=== PATIENT | male | born 1965 | race Caucasian/White ===

== ENCOUNTER 2024-01-27 08:23 | Emergency (ER) | payer SELFPAY ==
--- NOTE | ~2024-01-27 | XR_ITS ---
EXAMINATION: XR chest 1V portable DATE: 01/27/2024 08:43 INDICATION: Shortness of breath. Bilateral foot swelling. TECHNIQUE: frontal view of the chest was obtained. COMPARISON: None FINDINGS: The lungs are clear with no focal airspace opacities, pulmonary edema, pleural effusion or pneumothor ax. The cardiomediastinal silhouette is normal. At least mild thoracic spondylosis. IMPRESSION: 1. No acute cardiopulmonary disease. Reviewed, dictated and finalized at location A. [employer]
[2024-01-27 08:24] VITALS: BP 156/85; PULSE 84; RESP 16; TEMP 36.6; O2SAT 99
--- NOTE | 2024-01-27 08:31 | ECG_ITS ---
Test Date: 2024-01-27 08:47:36 Measurements Intervals [place] Rate: 79 P: 25 SD: 154 QRS: 27 QRSD: 93 T: 54 QT: 388 QTc: 445 Interpretive Statements SINUS RHYTHM WITH OCCASIONAL SUPRAVENTRICULAR PREMATURE COMPLEXES NONSPECIFIC ST & T-WAVE ABNORMALITY No previous ECG available for comparison Electronically Signed On 01-29-2024 11:57:50 [employer] by Scottie Bull M.D.
--- NOTE | 2024-01-27 08:34 | ED_ITS ---
HPI - Extremity Problem General Chief complaint: Extremity Problem,Nontraumatic Stated complaint: bilateral foot swelling Time Seen by Provider: 01/27/24 08:26 Source: patient Mode of arrival: ambulatory Limitations: no limitations History of Present Illness HPI Narrative: 58-year-old male, smoker with bilateral lower extremity lymphedema presents to the ED with -- bilateral feet swelling with pain and erythema for the past 1 week. No fever or chills. No injury to the lower extremity. No drainage from the lower extremities. MD Complaint: extremity pain and extremity swelling Onset (ago): day(s) ( Seven days) Pain Consistency: constant Location: left and right Quality: aching Radiation: none Relieving factors: nothing Exacerbating factors: nothing Associated symptoms: denies other symptoms Related Data Allergies Allergy/AdvReac Type Severity Reaction Status Date / Time No Known Allergies Allergy Verified 01/27/24 09:17 Review of Systems 2 Review of Systems: All systems reviewed & are unremarkable except as noted in HPI and below Constitutional: Constitutional: Reports as per HPI and Reports no additional constitutional complaints Eyes: Eyes: Reports as per HPI and Reports no additional eye complaints ENT: Reports system reviewed and no additional complaints, except as documented and Reports as per HPI Cardiovascular: Cardiovascular: Reports as per HPI and Reports no additional cardiovascular complaints Respiratory: Respiratory: Reports as per HPI and Reports no additional respiratory complaints Comments: history of snoring Gastrointestinal: Gastrointestinal: Reports as per HPI and Reports no additional gastrointestinal complaints Genitourinary: Genitourinary: Reports no additional male genitourinary complaints and Reports as per HPI Musculoskeletal: Musculoskeletal: Reports no additional musculoskeletal complaints and Reports as per HPI Integumentary/Breasts: Comments: bilateral leg swelling. Bilateral feet are erythematous/ swollen and tender Neurologic: Reports system reviewed and no additional complaints, except as documented and Reports as per HPI Psychiatric: Psychiatric: Reports no additional psychiatric complaints and Reports as per HPI Endocrine: Endocrine: Reports no additional endocrine complaints and Reports as per HPI Hematologic/Lymphatic: Hematologic/Lymphatic: Reports no additional hematologic/lymphatic complaints and Reports as per HPI Allergic/Immunologic: Allergic/Immunologic: Reports no additional allergic/immunologic complaints and Reports as per HPI PMFSH Past Medical History Medical History (Updated 01/27/24 @ 10:13 by Ted Gallego MD) Lymphedema Social History Social History (Updated 01/27/24 @ 08:36 by Ted Gallego MD) Social History: smoker Exam 2 Narrative: blood pressure stable. Afebrile. Oxygen saturation of 99% on room air. Const: General: healthy appearing and no acute distress Nutritional Appearance: well nourished Orientation/consciousness: patient oriented x3 Limitations: no limitations HENMT: Head: normal to inspection Ears: external ears normal F mick/Nose/Sinus: Normal external nose present Face and sinus: normal facial exam Mouth: Yes Normal oral and palatal mucosa present Throat: posterior oropharynx normal Eyes: Conjunctivae: conjunctivae normal Pupils: Equal, round and reactive pupils present EOM: EOMs intact bilaterally Direct Ophthalmoscopy: no photophobia Neck: Neck: normal visual inspection, no lymphadenopathy and no meningeal signs Chest: Chest palpation & inspection: normal inspection of the chest Resp: Effort & Inspection: normal respiratory effort Auscultation: d iminished lung sounds Cardio: Rate: regular rate Rhythm: regular rhythm GI: GI Palp: Yes Soft to palpation Auscultation: normal bowel sounds O ther: No tenderness/ rigidity / rebound. : General: Yes no CVA tenderness Back/Spine/Pelvis: Back: no CVA tenderness Skin: Other: Bilateral leg swelling bilateral feet are swollen/ erythematous and tender. Neuro: General: patient oriented x3, moves all extremities, no meningeal signs, no focal motor deficits and CN's II-XI intact bilaterally Cranial nerves: Yes Nystagmus not present Speech: normal speech Gait exam (Neuro): Normal gait present Extrem: General: normal to inspection and no clubbing, cyanosis or edema Psych: Mental Status: mental status grossly normal Affect: normal affect Course Course Emergency Course: Lymphedema-- the patient does not have any evidence of CHF, renal insufficiency. patient was noted to have a positive D-dimer. Unable to rule out leg DVT. Would start this patient on anticoagulation. The patient had an ABG of 742/36.5/80 on room air. The patient has any gradient of 24 and appears to be unlikely to have any significant pulmonary embolism. cellulitis both legs feet- Will start the patient on Augmentin in view of the bilateral pain/swelling/ erythema of both feet. The patient has a normal white cell count and a normal lactate Vital Signs Vital signs: Vital Signs Temperature 36.6 C 01/27/24 08:24 Pulse Rate 84 01/27/24 08:24 Respiratory Rate 16 01/27/24 08:24 Blood Pressure 156/85 H 01/27/24 08:24 Pulse Oximetry 99 01/27/24 08:24 Oxygen Delivery Room Air 01/27/24 08:24 Temperature 36.6 C 01/27/24 08:24 Pulse Rate 84 01/27/24 08:24 Respiratory Rate 16 01/27/24 08:24 Blood Pressure 156/85 H 01/27/24 08:24 Pulse Oximetry 99 01/27/24 08:24 Oxygen Delivery Room Air 01/27/24 08:24 MDM - Extremity (Nontraumatic) MDM Narrative Medical decision making narrative: lymphedema with positive D-dimer. Foot cellulitis Lab Data 01/27/24 08:59 01/27/24 08:58 Labs: Lab Results 01/27/24 01/27/24 Range/Units 08:58 08:59 WBC 9.2 (4.8-10.8) K/mm3 RBC 4.83 (4.70-6.10) M/mm3 Hgb 15.7 (14.0-18.0) g/dL Hct 44.4 (40.0-54.0) % MCV 91.9 (78.0-102.0) fL MCH 32.5 H (27.0-31.0) pg MCHC 35.4 (32-36) g/dL RDW 12.8 (11.6-14.4) % Plt Count 236 (150-420) K/mm3 MPV 9.4 (8.7-11.0) fl Immature Gran % (Auto) 0.4 H (0.0-0.0) % Neut % (Auto) 68.8 (50.0-70.0) % Lymph % (Auto) 20.1 (18.0-42.0) % [place] % (Auto) 8.1 (2.0-11.0) % Eos % (Auto) 2.2 (1.0-6.0) % Baso % (Auto) 0.4 (0.0-1.0) % Lymph # (Auto) 1.84 (1.10-4.50) K/mm3 [place] # (Auto) 0.74 (0.10-0.90) K/mm3 Eos # (Auto) 0.20 (0.02-0.50) K/mm3 Baso # (Auto) 0.04 (0.00-0.10) K/mm3 Abs Immat Gran (auto) 0.04 H (0.00-0.00) K/mm3 Absolute Neuts (auto) 6.30 (1.70-7.20) K/mm3 Absolute Nucleated RBC 0.00 (0.00-0.00) K/mm3 Nucleated RBC % 0.0 (0-0.0) % PT 10.6 (9.50-12.1) Seconds INR 1.0 APTT 24.9 (23.9-30.70) Sec D-Dimer 0.68 H* (0.19-0.50) mg/L Sodium 139 (136-145) mmol/L Potassium 3.6 (3.5-5.1) mmol/L Chloride 102 (98-108) mmol/L Carbon Dioxide 33 H (21-32) mmol/L Anion Gap 4 (4-12) mmol/L BUN 14 (7-18) mg/dL Creatinine 1.07 (0.70-1.30) mg/dL Estim Creat Clear Calc 91 ml/min Estimated GFR > 60 (59 - ) Glucose 138 H (70-99) mg/dL Calculated Osmolality 290 (285-295) mOsm/kg Lactic Acid 1.3 (0.4-2.0) mmol/L Uric Acid 5.4 (3.5-7.2) mg/dL Calcium 9.1 (8.5-10.1) mg/dL Total Bilirubin 0.4 (0.00-1.00) mg/dL AST 21 (15-37) U/L ALT 44 (16-63) U/L Alkaline Phosphatase 105 (46-116) U/L Troponin I 14.5 (0.00-60.4) ng/L NT-Pro-B Natriuret Pep 34 (0-125) pg/mL Total Protein 7.7 (6.4-8.2) g/dL Albumin 3.5 (3.4-5.0) g/dL TSH 3.28 (0.36-3.74) uIU/mL ABG Data ABG results: 01/27/24 09:47 Puncture Site Left radial ABG pH 7.42 ABG pCO2 36.5 ABG pO2 80.2 ABG PO2/FiO2 Ratio Not Reportable ABG HCO3 23.3 ABG O2 Saturation 95.9 ABG O2 Content 20.8 ABG Base Excess -0.7 L A-a Gradient Not Reportable Oxyhemoglobin 93.7 L O2 Delivery Device Room air O2 Liters/Min 0.0 ECG Data EKG #1: ECG completion date: 01/27/24 ECG completion time: 08:47 Interpretation: normal sinus rhythm. Normal axis. Nonspecific ST-T changes. No ST elevation. Discharge Plan Discharge Clinical Impression: Lymphedema, Localized swelling of both lower legs Cellulitis Qualifiers: Site of cellulitis: extremity Site of cellulitis of extremity: lower extremity Laterality: unspecified laterality Qualified Code(s): L03.119 - Cellulitis of unspecified part of limb Patient Disposition: Home, Self-Care Condition: Stable Instructions: Antibiotic Form, Cellulitis (ED), Leg Edema (ED), Lymphedema (ED) Additional Instructions: to return to the ED on Monday for bilateral lower extremity venous Dopplers. Patient Language: Upper Sorbian Prescriptions: New Eliquis 5 mg tablet 10 mg PO BID Qty: 28 0RF amoxicillin-pot clavulanate 875-125 mg tablet 1 tablet PO Q12H Qty: 14 0RF Follow-up/Referrals: UNKNOWN,DOCTOR [Primary Care Provider] - Time of Disposition: 10:14
[2024-01-27 09:01] LABS: Basophils Absolute Auto 0.04 K/mm3 (0.00-0.10); Basophils Percent Auto 0.4 % (0.0-1.0); Eosinophils Percent Auto 2.2 % (1.0-6.0); Hematocrit 44.4 % (40.0-54.0); Hemoglobin 15.7 g/dL (14.0-18.0); Immature Granulocyte Absolute 0.04 K/mm3 (0.00-0.00); Immature Granulocyte Percent A 0.4 % (0.0-0.0); Lymphocytes Absolute Auto 1.84 K/mm3 (1.10-4.50); Lymphocytes Percent Auto 20.1 % (18.0-42.0); Mean Corpuscular HGB Conc 35.4 g/dL (32-36); Mean Corpuscular Hemoglobin 32.5 pg (27.0-31.0); Mean Corpuscular Volume 91.9 fL (78.0-102.0); Mean Platelet Volume 9.4 fl (8.7-11.0); Monocytes Absolute Auto 0.74 K/mm3 (0.10-0.90); Monocytes Percent Auto 8.1 % (2.0-11.0); Neutrophils Percent Auto 68.8 % (50.0-70.0); Platelet Count Result 236 K/mm3 (150-420); Red Blood Count 4.83 M/mm3 (4.70-6.10); Red Cell Distribution Width 12.8 % (11.6-14.4); White Blood Count 9.2 K/mm3 (4.8-10.8)
[2024-01-27 09:15] LABS: Partial Thromboplastin Time 24.9 Sec (23.9-30.70); Prothrombin Time 10.6 Seconds (9.50-12.1)
[2024-01-27 09:18] LABS: Lactic Acid Reflex 1.3 mmol/L (0.4-2.0)
[2024-01-27 09:19] LABS: D Dimer 0.68 mg/L (0.19-0.50)
[2024-01-27 09:25] LABS: Alanine Aminotransferase 44 U/L (16-63); Albumin Level 3.5 g/dL (3.4-5.0); Alkaline Phosphatase 105 U/L (46-116); Anion Gap 4 mmol/L (4-12); Aspartate Amino Transferase 21 U/L (15-37); Bilirubin,Total 0.4 mg/dL (0.00-1.00); Blood Urea Nitrogen 14 mg/dL (7-18); Calcium 9.1 mg/dL (8.5-10.1); Carbon Dioxide 33 mmol/L (21-32); Chloride 102 mmol/L (98-108); Estimated CRCL calculation 91 ml/min; Estimated Glomerular Filt Rate > 60; Glucose 138 mg/dL (70-99); NT Pro B Type Natriuretic Pept 34 pg/mL (0-125); Osmolality Calculated 290 mOsm/kg (285-295); Potassium 3.6 mmol/L (3.5-5.1); Sodium 139 mmol/L (136-145); Thyroid Stimulating Hormone 3.28 uIU/mL (0.36-3.74); Total Protein 7.7 g/dL (6.4-8.2); Troponin I 14.5 ng/L (0.00-60.4); Uric Acid 5.4 mg/dL (3.5-7.2)
[2024-01-27 09:49] LABS: Base Excess ABG -0.7 mmol/L (0-2); HCO3 ABG 23.3 mmol/L (23-29); Oxygen Content ABG 20.8 %vol (16.0-22.0); Oxygen Saturation ABG 95.9 % (95-97); Oxyhemoglobin 93.7 % (94-100); PCO2 ABG 36.5 mmHg (35-45); PO2 ABG 80.2 mmHg (80-90); pH ABG 7.42 (7.35-7.45)
[2024-01-27 09:50] LABS: Device ROOM AIR; Modified Allen's Test Pass; Site Drawn LEFT RADIAL
[2024-01-27 10:26] VITALS: BP 146/87; PULSE 75; RESP 20; TEMP 36.6; O2SAT 99
== END 2024-01-27 10:46 | disposition home or self-care (01) ==
PROVIDERS: Emergency Provider Internal Medicine Critical Care Medicine
DX: L03.116 Cellulitis of left lower limb (principal); L03.115 Cellulitis of right lower limb
CPT/HCPCS: 36415; 36600; 71045; 80053; 82805; 83605; 83880; 84443; 84484; 84550; 85018; 85025; 85380; 85610; 85730; 93005; 99284